=== PATIENT | female | born 1940 | race Caucasian/White ===

== ENCOUNTER 2017-01-01 18:42 | Observation (INO) | payer OTHER ==
--- NOTE | 2017-01-01 19:01 | PDOC ---
Rapid Medical Evaluation Time Seen by Provider: 01/01/17 18:51 Medical Evaluation: Allergies Allergy/AdvReac Type Severity Reaction Status Date / Time No Known Drug Allergies Allergy Verified 10/16/16 10:01 01/01/17 18:54 01/01/17 18:54 01/01/17 19:01 RME Note: I have performed a brief, in-person evaluation of this patient . This patient presents with CC: heart palp x this am; hx afib. no CP, no SOB Pertinent PE findings are: HR= 101; I have ordered: labs, EKG The patient will proceed to ED for further evaluation.
[2017-01-01 19:06] VITALS: BMI 24.4
[2017-01-01 19:22] LABS: EOSINOPHIL 3.1 % (0-4.5); MCH 31.2 pg (25.7-33.7); MEAN CELL VOLUME 91.7 fl (80-96); MEAN PLT VOLUME 8.2 fl (7.5-11.1); NEUTROPHILS 45.1 % (42.8-82.8); PLATELET COUNT 296 K/MM3 (134-434); RDW 13.8 % (11.6-15.6); WHITE BLOOD COUNT 6.7 K/mm3 (4.0-10.0)
[2017-01-01 20:43] LABS: ALBUMIN 4.1 g/dl (3.4-5.0); ALK PHOS 162 U/L (45-117); ANION GAP 7 (8-16); BILIRUBIN,TOTAL 0.3 mg/dL (0.2-1.0); CALCIUM 9.3 mg/dL (8.5-10.1); CO2 31 mmol/L (21-32); CREATININE 0.7 mg/dL (0.55-1.02); GLUCOSE,RANDOM 101 mg/dL (74-106); SGOT/AST 25 U/L (15-37); SGPT/ALT 33 U/L (12-78); TOT PROT 7.7 g/dl (6.4-8.2)
--- NOTE | 2017-01-01 20:52 | PDOC ---
History of Present Illness <Pratima Mars - Last Filed: 01/01/17 21:01> <Neena Bliss - Last Filed: 01/02/17 18:07> - General Chief Complaint: Palpitations Stated Complaint: PALPITATIONS Time Seen by Provider: 01/01/17 18:51 - History of Present Illness Initial Comments: 01/01/17 21:01 The patient is colombian speaking only. Wire Products Inspector #[id number] was used to obtain patient history. The patient is a 76 year old female, with a significant past medical history of hypertension, who presents to the emergency department with palpitations today which she reports started at the middle of her chest radiated down to her epigastric region and up towards her neck. She denies shortness of breath, headache and dizziness. She denies fever, chills , nausea, vomit, diarrhea and constipation. She denies dysuria, frequency, urgency and hematuria. Allergies: NKDA Social history: denies toxic habits PCP - Dr. Girish Em (Pratima Mars) Past History <Pratima Mars - Last Filed: 01/01/17 21:01> - Past Medical History Cardiac Disorders: Yes (A-FIB) - Psycho/Social/Smoking Cessation Hx Anxiety: No Suicidal Ideation: No Smoking History: Never smoked Have you smoked in the past 12 months: No Information on smoking cessation initiated: No Hx Alcohol Use: No Drug/Substance Use Hx: No Substance Use Type: None Hx Substance Use Treatment: No <Neena Bliss - Last Filed: 01/02/17 18:07> - Past Medical History Allergies/Adverse Reactions: Allergies Allergy/AdvReac Type Severity Reaction Status Date / Time No Known Drug Allergies Allergy Verified 01/01/17 18:57 Home Medications: Ambulatory Orders Metoprolol Succinate [Toprol Xl] 25 mg PO DAILY 06/14/15 Rivaroxaban [Xarelto -] 20 mg PO DAILY 06/14/15 Atorvastatin Ca [Lipitor] 10 mg PO HS 10/16/16 Levofloxacin [Levaquin -] 500 mg PO DAILY #5 tablet 01/02/17 Review of Systems - Review of Systems Able to Perform ROS?: Yes <Pratima Mars - Last Filed: 01/01/17 21:01> <Neena Bliss - Last Filed: 01/02/17 18:07> - Review of Systems Comments:: 01/01/17 21:01 CONSTITUTIONAL: Absent: fever, chills, diaphoresis, generalized weakness, malaise, loss of appetite HEENT: Absent: rhinorrhea, nasal congestion, throat pain, throat swelling, difficulty swallowing, mouth swelling, ear pain, eye pain, visual Changes CARDIOVASCULAR: (+) palpitations, Absent: chest pain, syncope, irregular heart rate, lightheadedness, peripheral edema RESPIRATORY: Absent: cough, shortness of breath, dyspnea with exertion, orthopnea, wheezing, stridor, hemoptysis GASTROINTESTINAL: Absent: abdominal pain, abdominal distension, nausea, vomiting, diarrhea, constipation, melena, hematochezia GENITOURINARY: Absent: dysuria, frequency, urgency, hesitancy, hematuria, flank pain, genital pain MUSCULOSKELETAL: Absent: myalgia, arthralgia, joint swelling SKIN: Absent: rash, itching, pallor HEMATOLOGIC/IMMUNOLOGIC: Absent: easy bleeding, easy bruising, lymphadenopathy, frequent infections ENDOCRINE: Absent: unexplained weight gain, unexplained weight loss, heat intolerance, cold intolerance NEUROLOGIC: Absent: headache, focal weakness or paresthesias, dizziness, unsteady gait, seizure, mental status changes, bladder or bowel incontinence PSYCHIATRIC: Absent: anxiety, depression, suicidal or homicidal ideation, hallucinations. ( Pratima Mars) *Physical Exam <Pratima Mars - Last Filed: 01/01/17 21:01> <Neena Bliss - Last Filed: 01/02/17 18:07> - Vital Signs Last Vital Signs Temp Pulse Resp BP Pulse Ox 98.1 F 78 18 130/62 96 01/02/17 05:52 01/02/17 17:18 01/02/17 17:18 01/02/17 17:18 01/02/17 17:18 - Physical Exam Comments: 01/01/17 21:01 GENERAL: Well developed, well nourished. Awake and alert. No acute distress. HEENT: Normocephalic, atraumatic. PERRLA, EOMI. No conjunctival pallor. Sclera are non- icteric. Moist mucous membranes. Oropharynx is clear. NECK: Supple. Full ROM. No JVD. Carotid pulses 2+ and symmetric, without bruits. No thyromegaly. No lymphadenopathy. CARDIOVASCULAR: Regular rate and rhythm. No murmurs, rubs, or gallops. Distal pulses are 2+ and symmetric. PULMONARY: No evidence of respiratory distress. Lungs clear to auscultation bilaterally. No wheezing, rales or rhonchi. ABDOMINAL: Soft. Non-tender. Non-distended. No rebound or guarding. No organomegaly. Normoactive bowel sounds. MUSCULOSKELETAL Normal range of motion at all joints. No bony deformities or tenderness. No CVA tenderness. EXTREMITIES: No cyanosis. No clubbing. No edema. No calf tenderness. SKIN: Warm and dry. Normal capillary refill. No rashes. No jaundice. NEUROLOGICAL: Alert, awake, appropriate. Cranial nerves 2-12 intact. Normoreflexic in the upper and lower extremities. Normal speech. Toes are down-going bilaterally. Gait is normal without ataxia. PSYCHIATRIC: Cooperative. Good eye contact. Appropriate mood and affect. (Pratima Mars) Heart Score/ECG Review - History History: Slightly suspicious - Electrocardiogram EKG: Normal - Age Age: >/= 65 - Risk Factors Risk Factors Heart Score: Yes Hx Hypercholesterolemia, Yes Hx Hypertension Based on the list above the patient has:: 1-2 risk factors - Troponin Troponin: </= normal limit - Score Heart Score - Total: 3 - ECG Intrepretation Rhythm: Regular Rhythm - P and [place] Delta Wave(s) Present: No WPW: No - QRS Widened: RBBB (incomplete Right BBB) <Neena Bliss - Last Filed: 01/02/17 18:07> ED Treatment Course - LABORATORY CBC & Chemistry Diagram: 01/01/17 19:10 01/01/17 19:10 <Pratima Mars - Last Filed: 01/01/17 21:01> - LABORATORY CBC & Chemistry Diagram: 01/01/17 19:10 01/01/17 19:10 <Neena Bliss - Last Filed: 01/02/17 18:07> - ADDITIONAL ORDERS Additional order review: 01/01/17 19:10 RBC 4.26 MCV 91.7 MCHC 34.0 RDW 13.8 MPV 8.2 Neutrophils % 45.1 Lymphocytes % 41.7 H Monocytes % 9.1 Eosinophils % 3.1 Basophils % 1.0 - RADIOLOGY Radiology Studies Ordered: Category Date Time Status CHEST X-RAY PORTABLE* [RAD] Stat Radiology 01/01/17 20:48 Completed Medical Decision Making <Pratima Mars - Last Filed: 01/01/17 21:01> <Neena Bliss - Last Filed: 01/02/17 18:07> - Medical Decision Making 01/02/17 17:54 addendum to yesterday's chart: 76 yo female has palpitaions and came to Er -denies any chest pain as such -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
[2017-01-01 21:56] LABS: TROPONIN I < 0.02 ng/ml (0.00-0.05)
[2017-01-01 22:33] LABS: URINE APPEARANCE CLEAR; URINE BILIRUBIN NEGATIVE (NEGATIVE); URINE COLOR COLORLESS; URINE GLUCOSE (UA) NEGATIVE (NEGATIVE); URINE KETONE NEGATIVE (NEGATIVE); URINE NITRITE NEGATIVE (NEGATIVE); URINE PROTEIN NEGATIVE (NEGATIVE); URINE UROBILINOGEN NEGATIVE E.U./dl (0.2-1.0)
[2017-01-01 22:41] LABS: URINE BLOOD 1+ (NEGATIVE); URINE LEUK ESTERASE 1+ (NEGATIVE)
[2017-01-01 22:43] LABS: URINE MUCUS RARE; URINE RBC <1 /hpf (0-3); URINE WBC 3 /hpf (3-5)
--- NOTE | 2017-01-01 22:51 | HP ---
Admitting History and Physical - Primary Care Physician PCP: Cristiana Arredondo - Admission Chief Complaint: chest pain, palpitations History of Present Illness: The patient is a 76 year old female, with a significant past medical history of hypertension, who presents to the emergency department with palpitations today which she reports started at the middle of her chest radiated down to her epigastric region and up towards her neck. history taken from er note, tanzanian speaking - Past Medical History Cardiovascular: Yes: HTN, Hyperlipdemia - Smoking History Smoking history: Never smoked Have you smoked in the past 12 months: No - Alcohol/Substance Use Hx Alcohol Use: No Home Medications - Allergies Allergies/Adverse Reactions: Allergies Allergy/AdvReac Type Severity Reaction Status Date / Time No Known Drug Allergies Allergy Verified 01/01/17 18:57 - Home Medications Home Medications: Ambulatory Orders Metoprolol Succinate [Toprol Xl] 25 mg PO DAILY 06/14/15 Rivaroxaban [Xarelto -] 20 mg PO DAILY 06/14/15 Atorvastatin Ca [Lipitor] 10 mg PO HS 10/16/16 Family Disease History - Family Disease History Family History: Denies Review of Systems - Review of Systems Cardiovascular: reports: Chest Pain, Palpitations Physical Examination Vital Signs: Vital Signs Temperature 98.0 F 01/01/17 18:58 Pulse Rate 93 H 01/01/17 18:58 Respiratory Rate 18 01/01/17 18:58 Blood Pressure 120/78 01/01/17 18:58 O2 Sat by Pulse Oximetry (%) 100 01/01/17 18:58 Constitutional: Yes: No Distress HENT: Yes: Atraumatic Neck: Yes: Supple Cardiovascular: Yes: Pulse Irregular Respiratory: Yes: CTA Bilaterally Gastrointestinal: Yes: Normal Bowel Sounds Extremities: Yes: WNL Neurological: Yes: Alert, Oriented Problem List - Problems (1) Palpitations Code(s): R00.2 - PALPITATIONS Assessment/Plan Laboratory Tests 01/01/17 01/01/17 01/01/17 19:10 19:10 19:36 WBC 6.7 RBC 4.26 Hgb 13.3 D Hct 39.1 MCV 91.7 MCHC 34.0 RDW 13.8 Plt Count 296 MPV 8.2 Neutrophils % 45.1 Lymphocytes % 41.7 H Monocytes % 9.1 Eosinophils % 3.1 Basophils % 1.0 Sodium 140 Potassium 4.8 D Chloride 102 Carbon Dioxide 31 Anion Gap 7 L BUN 13 D Creatinine 0.7 D Creat Clearance w eGFR > 60 Random Glucose 101 Calcium 9.3 Total Bilirubin 0.3 D AST 25 D ALT 33 Alkaline Phosphatase 162 H Creatine Kinase Troponin I B-Natriuretic Peptide Total Protein 7.7 Albumin 4.1 Lipase 351 Urine Color Colorless Urine Appearance Clear Urine pH 7.0 Ur Specific [place] 1.002 Urine Protein Negative Urine Glucose (UA) Negative Urine Ketones Negative Urine Blood 1+ H Urine Nitrite Negative Urine Bilirubin Negative Urine Urobilinogen Negative Ur Leukocyte Esterase 1+ H Urine RBC <1 Urine WBC 3 Urine Mucus Rare 01/01/17 01/01/17 20:51 20:51 WBC RBC Hgb Hct MCV MCHC RDW Plt Count MPV Neutrophils % Lymphocytes % Monocytes % Eosinophils % Basophils % Sodium Potassium Chloride Carbon Dioxide Anion Gap BUN Creatinine Creat Clearance w eGFR Random Glucose Calcium Total Bilirubin AST ALT Alkaline Phosphatase Creatine Kinase 77 Troponin I < 0.02 B-Natriuretic Peptide 122.23 Total Protein Albumin Lipase Urine Color Urine Appearance Urine pH Ur Specific [place] Urine Protein Urine Glucose (UA) Urine Ketones Urine Blood Urine Nitrite Urine Bilirubin Urine Urobilinogen Ur Leukocyte Esterase Urine RBC Urine WBC Urine Mucus Active Medications Generic Name Dose Route Start Last Admin Trade Name Freq PRN Reason Stop Dose Admin Acetaminophen 650 mg 01/01/17 22:56 Tylenol - PO Q6H PRN FEVER OR PAIN Atorvastatin Calcium 10 mg 01/02/17 22:00 Lipitor - PO HS [facility] Levofloxacin 500 mg 01/01/17 10:00 01/02/17 10:26 Levaquin - PO 500 mg DAILY [facility] Administration Metoprolol Succinate 25 mg 01/02/17 10:00 01/02/17 10:52 Toprol Xl - PO 25 mg DAILY [facility] Administration Rivaroxaban 20 mg 01/02/17 10:00 01/02/17 10:26 Xarelto - PO 20 mg DAILY [facility] Administration A/P 1.chest pain/palpitations tele monitoring fu cardiac profile cardiology consult continue home meds 2.uti will start po levaquin gi /dvt ppx
[2017-01-01] MEDS ORDERED: ACETAMINOPHEN 325 MG TABLET (FP) PO PRN (22:56)
[2017-01-01] MEDS ORDERED: LEVOFLOXACIN 500 MG TABLET (FP) ONE (23:14)
[2017-01-01] MEDS: LEVOFLOXACIN 500 MG TABLET (FP) PO SCH (23:17)
[2017-01-02 02:45] LABS: TROPONIN I < 0.02 ng/ml (0.00-0.05)
[2017-01-02] MEDS ORDERED: RIVAROXABAN 20 MG TABLET PO SCH (10:00)
[2017-01-02] MEDS ORDERED: METOPROLOL SUCCINATE 25 MG TAB.SR.24H (FP) PO SCH (10:00)
--- NOTE | 2017-01-02 10:00 | CON.CARD ---
Consult Consult Specialty:: Cardiology Referred by:: Dr. Arredondo Reason for Consultation:: Cardiac evaluation - History of Present Illness Chief Complaint: Palpitation History of Present Illness: Patient is a 76 year old female of descent with underlying history of hypertension and hypercholesterolemia who presents with palpitations. She denies chest pain or shortness of breath. She denies paroxysmal nocturnal dyspnea or orthopnea. She denies fever or chills. She denies headache or lightheadedness. She states that she feels better now. She denies prior syncopal episodes. - History Source History Provided By: Patient, Friend, Medical Record Limitations to Obtaining History: Language Barrier - Past Medical History Cardio/Vascular: Yes: HTN, Hyperlipdemia Endocrine: No: Diabetes Mellitus - Past Surgical History Additional Surgical History: breast cyst removal - Alcohol/Substance Use Hx Alcohol Use: No - Smoking History Smoking history: Never smoked Have you smoked in the past 12 months: No Home Medications - Allergies Allergies/Adverse Reactions: Allergies Allergy/AdvReac Type Severity Reaction Status Date / Time No Known Drug Allergies Allergy Verified 01/01/17 18:57 - Home Medications Home Medications: Ambulatory Orders Metoprolol Succinate [Toprol Xl] 25 mg PO DAILY 06/14/15 Rivaroxaban [Xarelto -] 20 mg PO DAILY 06/14/15 Atorvastatin Ca [Lipitor] 10 mg PO HS 10/16/16 Family Disease History - Family Disease History Family Disease History: Heart Disease: Brother Review of Systems - Review of Systems Constitutional: denies: Chills, Fever Cardiovascular: reports: Palpitations. denies: Chest Pain, Shortness of Breath Respiratory: denies: Cough, Hemoptysis, Orthopnea, PND, SOB Gastrointestinal: denies: Abdominal Pain, Constipation, Diarrhea, Melena, Nausea , Rectal Bleeding, Vomiting Musculoskeletal: denies: Joint Pain Neurological: denies: Dizziness, Headache, Seizure, Syncope Vital Signs: Vital Signs Temperature 98.1 F 01/02/17 05:52 Pulse Rate 97 H 01/02/17 05:52 Respiratory Rate 19 01/02/17 05:52 Blood Pressure 105/61 01/02/17 05:52 O2 Sat by Pulse Oximetry (%) 99 01/02/17 05:58 Neck: Yes: Supple Respiratory: Yes: CTA Bilaterally Gastrointestinal: Yes: Normal Bowel Sounds, Soft. No: Tenderness Cardiovascular: Yes: Regular Rate and Rhythm JVD: No Carotid Bruit: No PMI: Non-Displaced Heart Sounds: Yes: S1, S2. No: Gallop Edema: No - Other Data Labs, Other Data: Laboratory Results - last 24 hr 01/01/17 01/01/17 01/01/17 19:10 19:10 19:36 WBC 6.7 RBC 4.26 Hgb 13.3 D Hct 39.1 MCV 91.7 MCHC 34.0 RDW 13.8 Plt Count 296 MPV 8.2 Neutrophils % 45.1 Lymphocytes % 41.7 H Monocytes % 9.1 Eosinophils % 3.1 Basophils % 1.0 Sodium 140 Potassium 4.8 D Chloride 102 Carbon Dioxide 31 Anion Gap 7 L BUN 13 D Creatinine 0.7 D Creat Clearance w eGFR > 60 Random Glucose 101 Calcium 9.3 Total Bilirubin 0.3 D AST 25 D ALT 33 Alkaline Phosphatase 162 H Creatine Kinase Troponin I B-Natriuretic Peptide Total Protein 7.7 Albumin 4.1 Lipase 351 Urine Color Colorless Urine Appearance Clear Urine pH 7.0 Ur Specific [place] 1.002 Urine Protein Negative Urine Glucose (UA) Negative Urine Ketones Negative Urine Blood 1+ H Urine Nitrite Negative Urine Bilirubin Negative Urine Urobilinogen Negative Ur Leukocyte Esterase 1+ H Urine RBC <1 Urine WBC 3 Urine Mucus Rare Urine HCG, Qual Negative 01/01/17 01/01/17 01/02/17 20:51 20:51 02:05 WBC RBC Hgb Hct MCV MCHC RDW Plt Count MPV Neutrophils % Lymphocytes % Monocytes % Eosinophils % Basophils % Sodium Potassium Chloride Carbon Dioxide Anion Gap BUN Creatinine Creat Clearance w eGFR Random Glucose Calcium Total Bilirubin AST ALT Alkaline Phosphatase Creatine Kinase 77 56 Troponin I < 0.02 < 0.02 B-Natriuretic Peptide 122.23 Total Protein Albumin Lipase Urine Color Urine Appearance Urine pH Ur Specific [place] Urine Protein Urine Glucose (UA) Urine Ketones Urine Blood Urine Nitrite Urine Bilirubin Urine Urobilinogen Ur Leukocyte Esterase Urine RBC Urine WBC Urine Mucus Urine HCG, Qual Sinus rhythm with atrial premature complex Echo: Pending Imaging - Results Chest X-ray: Report Reviewed (Unremarkable) EKG: Report Reviewed Problem List - Problems (1) Palpitations Code(s): R00.2 - PALPITATIONS (2) HTN (hypertension) Code(s): I10 - ESSENTIAL (PRIMARY) HYPERTENSION Qualifiers: Hypertension type: essential hypertension Qualified Code(s): I10 - Essential (primary) hypertension (3) Hypercholesterolemia Code(s): E78.0 - PURE HYPERCHOLESTEROLEMIA * DO NOT USE * Assessment/Plan 1. Palpitation, etiology to be determined 2. Hypertension 3. Hypercholesterolemia PLAN: 1. Continue Metoprolol 2. Continue statin 3. Transthoracic echocardiography to assess LV and valvular function 4. Telemetry monitoring 5. Patient's medication list includes Xarelto which appears to have been started in the clinic. It is unclear as to reason. It is only indicated for nonvalvular atrial fibrillation or DVT/PE which she nor the daughter is able to give a clear history. Further plans are to follow Evangelista Petersen MD
[2017-01-02] MEDS: LEVOFLOXACIN 500 MG TABLET (FP) PO SCH (10:26)
[2017-01-02] MEDS ORDERED: METOPROLOL SUCCINATE 50 MG TAB.SR.24H (FP) ONE (10:41)
[2017-01-02 17:22] VITALS: BP 130/62; PULSE 78
--- NOTE | 2017-01-02 17:48 | DS ---
Physical Examination Vital Signs: Vital Signs Temperature 98.1 F 01/02/17 05:52 Pulse Rate 78 01/02/17 17:18 Respiratory Rate 18 01/02/17 17:18 Blood Pressure 130/62 01/02/17 17:18 O2 Sat by Pulse Oximetry (%) 96 01/02/17 17:18 Constitutional: Yes: No Distress HENT: Yes: Atraumatic Neck: Yes: Supple Cardiovascular: Yes: Regular Rate and Rhythm Respiratory: Yes: CTA Bilaterally Gastrointestinal: Yes: Normal Bowel Sounds Extremities: Yes: WNL Neurological: Yes: Alert, Oriented Discharge Summary Reason For Visit: PALPITATIONS Current Active Problems HTN (hypertension) (Acute) Hypercholesterolemia (Acute) Palpitations (Acute) - Instructions Diet, Activity, Other Instructions: ask your pmd about xeralto Referrals: Girish mE [Primary Care Provider] - - Home Medications Comprehensive Discharge Medication List: Ambulatory Orders Metoprolol Succinate [Toprol Xl] 25 mg PO DAILY 06/14/15 Rivaroxaban [Xarelto -] 20 mg PO DAILY 06/14/15 Atorvastatin Ca [Lipitor] 10 mg PO HS 10/16/16 Levofloxacin [Levaquin -] 500 mg PO DAILY #5 tablet 01/02/17 DC HOME ON PO LEVAQUIN FOR UTI FU PMD CARDIOLOGY 1 WEEK
--- NOTE | 2017-01-02 18:00 | EKG ---
Test Reason : Blood Pressure : / mmHG Vent. Rate : 100 BPM Atrial Rate : 100 BPM P-R Int : 140 ms QRS Dur : 092 ms QT Int : 322 ms P-R-T Axes : 056 022 045 degrees QTc Int : 415 ms SINUS RHYTHM WITH PREMATURE ATRIAL COMPLEXES POSSIBLE LEFT ATRIAL ENLARGEMENT INCOMPLETE RIGHT BUNDLE BRANCH BLOCK BORDERLINE ECG WHEN COMPARED WITH ECG OF 16-OCT-2016 12:40, PREMATURE ATRIAL COMPLEXES ARE NOW PRESENT INCOMPLETE RIGHT BUNDLE BRANCH BLOCK IS NOW PRESENT Confirmed by JAMAL OWEN MD ([id number]) on 01/02/2017 6:00:37 PM Referred By: Confirmed By:JAMAL OWEN MD
[2017-01-02 18:31] VITALS: TEMP 97.8
[2017-01-02] MEDS ORDERED: ATORVASTATIN CA 10 MG TABLET (FP) PO SCH (22:00)
[2017-01-03 11:32] LABS: THYROID STIMULATING HORMONE 2.43 uIU/ml (0.358-3.74)
== END 2017-01-02 19:05 | disposition home or self-care (01) ==
LOC: JER 18:42 → JERBED 20:56
PROVIDERS: ADMIT Internal Medicine; ATTEND Internal Medicine
DX: R00.2 Palpitations (principal); I10 Essential (primary) hypertension; E78.5 Hyperlipidemia, unspecified; N39.0 Urinary tract infection, site not specified
CPT/HCPCS: 36415; 71010-TC; 80053; 81003; 81015; 82550; 83690; 83880; 84443; 84484; 84703; 85025; 93005; 93010; 93306-TC; 99285-25; G0378

== ENCOUNTER 2017-12-18 04:37 | Emergency (ER) | payer OTHER ==
[2017-12-18 05:20] VITALS: BMI 25.7
--- NOTE | 2017-12-18 05:37 | PDOC ---
History of Present Illness - General Chief Complaint: Pain Stated Complaint: PAIN Time Seen by Provider: 12/18/17 05:37 - History of Present Illness Initial Comments: 12/18/17 06:21 Ms. Sis Gonzalez is a 77 yo female w/ pmh of HTN, HLD, and afib (on Xarelto) who presents complaining of a 2 day history of bilateral pelvic pain with associated left back pain. She reports this has been complicated by increased urinary urgency, frequency, and decreased volume. She recently started taking Augmentin proscribed by her PCP for a problem in her throat but can provide no additional information as to why. The patient denies chest pain, shortness of breath, headache and dizziness. Denies fever, chills, nausea, vomit, diarrhea and constipation. Denies dysuria. Allergies: NKDA Past History - Past Medical History Allergies/Adverse Reactions: Allergies Allergy/AdvReac Type Severity Reaction Status Date / Time No Known Drug Allergies Allergy Verified 12/18/17 05:15 Home Medications: Ambulatory Orders Metoprolol Succinate [Toprol Xl] 25 mg PO DAILY 06/14/15 Rivaroxaban [Xarelto -] 20 mg PO DAILY 06/14/15 Atorvastatin Ca [Lipitor] 10 mg PO HS 10/16/16 Amoxicillin/Potassium Clav [Augmentin 875-125 Tablet] 1 each PO Q12H 12/18/17 Cardiac Disorders: Yes (A-FIB) HTN: Yes Hypercholesterolemia: Yes - Suicide/Smoking/Psychosocial Hx Smoking History: Never smoked Have you smoked in the past 12 months: No Information on smoking cessation initiated: No Hx Alcohol Use: No Drug/Substance Use Hx: No Substance Use Type: None Hx Substance Use Treatment: No Review of Systems - Review of Systems Comments:: 12/18/17 06:26 GENERAL/CONSTITUTIONAL: No fever or chills. No weakness. HEAD, EYES, EARS, NOSE AND THROAT: No change in vision. No ear pain or discharge. No sore throat. CARDIOVASCULAR: No chest pain or shortness of breath RESPIRATORY: No cough, wheezing, or hemoptysis. GASTROINTESTINAL: No nausea, vomiting, diarrhea or constipation. GENITOURINARY: +Increased frequency, urgency, and decreased volume of urine as described. MUSCULOSKELETAL: No joint or muscle swelling or pain. No neck or back pain. SKIN: No rash NEUROLOGIC: No headache, vertigo, loss of consciousness, or change in strength/ sensation. ENDOCRINE: No increased thirst. No abnormal weight change HEMATOLOGIC/LYMPHATIC: No anemia, easy bleeding, or history of blood clots. ALLERGIC/IMMUNOLOGIC: No hives or skin allergy. *Physical Exam - Vital Signs Last Vital Signs Temp Pulse Resp BP Pulse Ox 97.7 F 73 14 116/78 99 12/18/17 05:16 12/18/17 05:16 12/18/17 05:16 12/18/17 05:16 12/18/17 05:16 - Physical Exam Comments: 12/18/17 06:26 GENERAL: Awake, alert, and fully oriented, in no acute distress HEAD: No signs of trauma, normocephalic, atraumatic EYES: PERRLA, EOMI, sclera anicteric, conjunctiva clear ENT: Auricles normal inspection, hearing grossly normal, nares patent, oropharynx clear without exudates. Moist mucosa NECK: Normal ROM, supple, no lymphadenopathy, JVD, or masses LUNGS: No distress, speaks full sentences, clear to auscultation bilaterally HEART: Regular rate and rhythm, normal S1 and S2, no murmurs, rubs or gallops, peripheral pulses normal and equal bilaterally. ABDOMEN: +Mild left CVA tenderness. Soft, nontender, normoactive bowel sounds. No guarding, no rebound. No masses EXTREMITIES: Normal inspection, Normal range of motion, no edema. No clubbing or cyanosis. NEUROLOGICAL: Cranial nerves II through XII grossly intact. Normal speech, normal gait, no focal sensorimotor deficits SKIN: Warm, Dry, normal turgor, no rashes or lesions noted. ED Treatment Course - LABORATORY CBC & Chemistry Diagram: 12/18/17 06:20 12/18/17 06:23 Medical Decision Making - Medical Decision Making 12/18/17 06:42 Ms. Sis Gonzalez is a 77 yo female w/ pmh as described who presents w/ symptoms concerning for uti vs. nephrolithiasis. UA/CBC/CMP/CT ordered for evaluation. 12/18/17 06:41 *DC/Admit/Observation/Transfer Diagnosis at time of Disposition: Abdominal pain Qualifiers: Abdominal location: unspecified location Qualified Code(s): R10.9 - Unspecified abdominal pain - Discharge Dispostion Disposition: HOME Condition at time of disposition: Improved - Referrals Referrals: Madhu,Eric N., MD [Primary Care Provider] - - Patient Instructions Printed Discharge Instructions: DI for Abdominal Muscle Strain Additional Instructions: Follow up with Dr. Leung within the next 2-3 days. Come back to the ER for any new, worsening or concerning symptoms Print Language: TAJIK - Post Discharge Activity
[2017-12-18 06:45] LABS: BASO % 0.8 % (0-2.0); EOS % 1.9 % (0-4.5); HEMATOCRIT 39.5 % (32.4-45.2); HEMOGLOBIN 13.1 GM/dL (10.7-15.3); LYMPH % 30.7 % (8-40); MCH 30.7 pg (25.7-33.7); MCHC 33.1 g/dl (32.0-36.0); MEAN CELL VOLUME 92.7 fl (80-96); MEAN PLT VOLUME 8.4 fl (7.5-11.1); NEUT % 56.6 % (42.8-82.8); PLATELET COUNT 371 K/MM3 (134-434); RBC 4.26 M/mm3 (3.60-5.2); RDW 13.5 % (11.6-15.6); WHITE BLOOD COUNT 10.2 K/mm3 (4.0-10.0)
[2017-12-18 07:12] LABS: ALBUMIN 3.3 g/dl (3.4-5.0); ALK PHOS 97 U/L (45-117); ANION GAP 8 (8-16); BILIRUBIN,TOTAL 0.2 mg/dL (0.2-1.0); BLOOD UREA NITROGEN 13 mg/dL (7-18); CALCIUM 8.8 mg/dL (8.5-10.1); CHLORIDE 105 mmol/L (98-107); CO2 29 mmol/L (21-32); CREATININE 0.7 mg/dL (0.55-1.02); GLUCOSE,RANDOM 101 mg/dL (74-106); SGPT/ALT 19 U/L (12-78); SODIUM 142 mmol/L (136-145); TOT PROT 6.8 g/dl (6.4-8.2)
--- NOTE | 2017-12-18 07:42 | PDOC ---
*Physical Exam - Vital Signs Last Vital Signs Temp Pulse Resp BP Pulse Ox 97.9 F 62 14 147/119 98 12/18/17 06:57 12/18/17 06:57 12/18/17 06:57 12/18/17 06:57 12/18/17 06:57 ED Treatment Course - LABORATORY CBC & Chemistry Diagram: 12/18/17 06:20 12/18/17 06:23 - ADDITIONAL ORDERS Additional order review: 12/18/17 06:20 RBC 4.26 MCV 92.7 MCHC 33.1 RDW 13.5 MPV 8.4 Neutrophils % 56.6 D Lymphocytes % 30.7 D Monocytes % 10.0 Eosinophils % 1.9 Basophils % 0.8 Medical Decision Making - Medical Decision Making 12/18/17 07:[address] Read pending.. 12/18/17 08:[address] negative. Will dc patient with follow up visit to primary doctor *DC/Admit/Observation/Transfer Diagnosis at time of Disposition: Abdominal pain - Discharge Dispostion Disposition: HOME Condition at time of disposition: Improved Admit: No - Referrals Referrals: Eric Leung MD [Primary Care Provider] - - Patient Instructions Printed Discharge Instructions: DI for Abdominal Muscle Strain Additional Instructions: Follow up with Dr. Leung within the next 2-3 days. Come back to the ER for any new, worsening or concerning symptoms Print Language: [place] - Post Discharge Activity
[2017-12-18 07:53] LABS: POTASSIUM 4.9 mmol/L (3.5-5.1)
[2017-12-18 07:54] LABS: SGOT/AST 17 U/L (15-37)
[2017-12-18 07:56] VITALS: TEMP 98.3
[2017-12-18 08:06] LABS: URINE APPEARANCE CLEAR; URINE BILIRUBIN NEGATIVE (NEGATIVE); URINE BLOOD NEGATIVE (NEGATIVE); URINE COLOR LTYELLOW; URINE GLUCOSE (UA) NEGATIVE (NEGATIVE); URINE KETONE NEGATIVE (NEGATIVE); URINE LEUK ESTERASE NEGATIVE (NEGATIVE); URINE NITRITE NEGATIVE (NEGATIVE); URINE PROTEIN NEGATIVE (NEGATIVE); URINE UROBILINOGEN NEGATIVE mg/dL (0.2-1.0)
[2017-12-18 09:02] VITALS: BP 116/70; PULSE 71
== END 2017-12-18 09:02 | disposition home or self-care (01) ==
LOC: JER 04:37
DX: R10.30 Lower abdominal pain, unspecified (principal); I10 Essential (primary) hypertension; E78.00 Pure hypercholesterolemia, unspecified; I48.91 Unspecified atrial fibrillation; Z79.01 Long term (current) use of anticoagulants
CPT/HCPCS: 36415; 74176; 80053; 81003; 85025; 87086; 99285-25

== ENCOUNTER 2017-12-26 19:37 | Inpatient (IN) | payer OTHER ==
--- NOTE | 2017-12-26 20:04 | PDOC ---
Rapid Medical Evaluation Time Seen by Provider: 12/26/17 19:59 Medical Evaluation: Allergies Allergy/AdvReac Type Severity Reaction Status Date / Time No Known Drug Allergies Allergy Verified 12/18/17 05:15 12/26/17 19:59 I have performed a brief in-person evaluation of this patient. The patient presents with a chief complaint of: vomiting since yesterday, 4 episodes of diarrhea, periumbilical abdominal pain, 8/10 pain Pertinent physical exam findings: well appearing I have ordered the following: labs, ekg The patient will proceed to the ED for further evaluation. Discharge Disposition - Diagnosis Abdominal pain - Referrals - Patient Instructions - Post Discharge Activity
[2017-12-26 20:52] LABS: BASO % 0.6 % (0-2.0); EOS % 0.1 % (0-4.5); HEMOGLOBIN 12.1 GM/dL (10.7-15.3); LYMPH % 21.9 % (8-40); MCHC 34.6 g/dl (32.0-36.0); MEAN CELL VOLUME 89.6 fl (80-96); MEAN PLT VOLUME 8.3 fl (7.5-11.1); MONO % 6.7 % (3.8-10.2); NEUT % 70.7 % (42.8-82.8); PLATELET COUNT 255 K/MM3 (134-434); RBC 3.91 M/mm3 (3.60-5.2); RDW 13.2 % (11.6-15.6); WHITE BLOOD COUNT 6.9 K/mm3 (4.0-10.0)
[2017-12-26 21:15] LABS: URINE APPEARANCE CLEAR; URINE BILIRUBIN NEGATIVE (NEGATIVE); URINE BLOOD NEGATIVE (NEGATIVE); URINE COLOR YELLOW; URINE GLUCOSE (UA) NEGATIVE (NEGATIVE); URINE KETONE NEGATIVE (NEGATIVE); URINE NITRITE NEGATIVE (NEGATIVE); URINE PROTEIN NEGATIVE (NEGATIVE); URINE UROBILINOGEN NEGATIVE mg/dL (0.2-1.0)
[2017-12-26 21:18] LABS: URINE LEUK ESTERASE 1+ (NEGATIVE)
[2017-12-26 21:22] LABS: EPI CELLS RARE /HPF (FEW); URINE MUCUS RARE
[2017-12-26 21:32] LABS: ALBUMIN 3.3 g/dl (3.4-5.0); ANION GAP 8 (8-16); BLOOD UREA NITROGEN 11 mg/dL (7-18); CALCIUM 7.8 mg/dL (8.5-10.1); CHLORIDE 88 mmol/L (98-107); CO2 25 mmol/L (21-32); GLUCOSE,RANDOM 111 mg/dL (74-106)
[2017-12-26 21:35] LABS: ALK PHOS 102 U/L (45-117); BILIRUBIN,TOTAL 0.5 mg/dL (0.2-1.0); CREATININE 0.6 mg/dL (0.55-1.02); SGOT/AST 18 U/L (15-37); SGPT/ALT 20 U/L (12-78); TOT PROT 6.7 g/dl (6.4-8.2)
[2017-12-26 21:39] LABS: LIPASE 224 U/L (73-393)
[2017-12-26 21:40] LABS: SODIUM 121 mmol/L (136-145)
[2017-12-26] MEDS ORDERED: ONDANSETRON *ODT* 4 MG TABLET SL ONE (21:55)
[2017-12-26] MEDS ORDERED: ONDANSETRON *ODT* 4 MG TABLET ONE (21:58)
--- NOTE | 2017-12-26 22:15 | PDOC ---
History of Present Illness - General Chief Complaint: Pain Stated Complaint: STOMACH PAIN Time Seen by Provider: 12/26/17 19:59 History Source: Patient - History of Present Illness Initial Comments: 12/26/17 22:20 77 year old c/o periumbilical pain with NVD x 2 days. denies chest pain, respiratory complaints, sick contacts, fever / chills, urinary symptoms. pmhx: HTN, cardiac stents currently on xarelto. Past History - Past Medical History Allergies/Adverse Reactions: Allergies Allergy/AdvReac Type Severity Reaction Status Date / Time No Known Drug Allergies Allergy Verified 12/18/17 05:15 Home Medications: Ambulatory Orders Metoprolol Succinate [Toprol Xl] 25 mg PO DAILY 06/14/15 Rivaroxaban [Xarelto -] 20 mg PO DAILY 06/14/15 Atorvastatin Ca [Lipitor] 10 mg PO HS 10/16/16 Amoxicillin/Potassium Clav [Augmentin 875-125 Tablet] 1 each PO Q12H 12/18/17 Cardiac Disorders: Yes (A-FIB) COPD: No HTN: Yes Hypercholesterolemia: Yes - Suicide/Smoking/Psychosocial Hx Smoking History: Never smoked Have you smoked in the past 12 months: No Information on smoking cessation initiated: No Hx Alcohol Use: No Drug/Substance Use Hx: No Substance Use Type: None Hx Substance Use Treatment: No Review of Systems - Review of Systems Able to Perform ROS?: Yes Is the patient limited Kinyarwanda proficient: No Constitutional: Yes: Symptoms Reported, See HPI, Chills, Diaphoresis, Fever, Loss of Appetite, Malaise, Night Sweats, Weakness, Weight Stable, Unintentional Wgt. Loss, Unexplained wgt Loss, Other ABD/GI: Yes: Diarrhea, Nausea, Vomiting, Abdominal cramping (periumbilical pain) *Physical Exam - Vital Signs Last Vital Signs Temp Pulse Resp BP Pulse Ox 98.3 F 72 19 122/72 98 12/26/17 20:00 12/26/17 20:00 12/26/17 20:00 12/26/17 20:00 12/26/17 20:00 - Physical Exam General Appearance: Yes: Mild Distress Respiratory/Chest: positive: Lungs Clear, Normal Breath Sounds Cardiovascular: positive: Regular Rhythm, Regular Rate ED Treatment Course - LABORATORY CBC & Chemistry Diagram: 12/26/17 20:41 12/26/17 20:41 - ADDITIONAL ORDERS Additional order review: Laboratory Results 12/26/17 12/26/17 12/26/17 20:49 20:45 20:41 Sodium 121 L* Potassium 4.0 Chloride 88 L Carbon Dioxide 25 Anion Gap 8 BUN 11 Creatinine 0.6 Creat Clearance w eGFR > 60 Random Glucose 111 H Calcium 7.8 L Total Bilirubin 0.5 D AST 18 ALT 20 Alkaline Phosphatase 102 Creatine Kinase 123 Troponin I < 0.02 Total Protein 6.7 Albumin 3.3 L Lipase 224 Urine Color Yellow Urine Appearance Clear Urine pH 6.0 Ur Specific [place] 1.018 Urine Protein Negative Urine Glucose (UA) Negative Urine Ketones Negative Urine Blood Negative Urine Nitrite Negative Urine Bilirubin Negative Urine Urobilinogen Negative Ur Leukocyte Esterase 1+ H Urine WBC (Auto) 4 Urine RBC (Auto) 3 Ur Epithelial Cells Rare Urine Mucus Rare 12/26/17 20:41 RBC 3.91 MCV 89.6 MCHC 34.6 RDW 13.2 MPV 8.3 Neutrophils % 70.7 D Lymphocytes % 21.9 D Monocytes % 6.7 Eosinophils % 0.1 D Basophils % 0.6 - Medications Given in the ED: ED Medications Discontinued Medications Generic Name Dose Route Start Last Admin Trade Name Freq PRN Reason Stop Dose Admin Ondansetron HCl 4 mg 12/26/17 21:55 12/26/17 21:59 Zofran Odt - SL 12/26/17 21:56 4 mg ONCE ONE Administration Medical Decision Making - Medical Decision Making 12/26/17 23:49 A: Abdominal pain P: CBC CMP: Hyponatremia NA : 121 UA CTAP: *DC/Admit/Observation/Transfer Diagnosis at time of Disposition: Hyponatremia Abdominal pain Qualifiers: Abdominal location: periumbilical Qualified Code(s): R10.33 - Periumbilical pain - Discharge Dispostion Admit: Yes - Referrals Referrals: Eric Leung MD [Primary Care Provider] - - Patient Instructions - Post Discharge Activity
[2017-12-26] MEDS ORDERED: SODIUM CHLORIDE 1,000 ML IV STA (22:23)
--- NOTE | 2017-12-27 00:44 | PDOC ---
*Physical Exam - Vital Signs Last Vital Signs Temp Pulse Resp BP Pulse Ox 98.3 F 72 19 122/72 98 12/26/17 20:00 12/26/17 20:00 12/26/17 20:00 12/26/17 20:00 12/26/17 20:00 ED Treatment Course - LABORATORY CBC & Chemistry Diagram: 12/26/17 20:41 12/26/17 20:41 - ADDITIONAL ORDERS Additional order review: Laboratory Results 12/26/17 12/26/17 12/26/17 20:49 20:45 20:41 Sodium 121 L* Potassium 4.0 Chloride 88 L Carbon Dioxide 25 Anion Gap 8 BUN 11 Creatinine 0.6 Creat Clearance w eGFR > 60 Random Glucose 111 H Calcium 7.8 L Total Bilirubin 0.5 D AST 18 ALT 20 Alkaline Phosphatase 102 Creatine Kinase 123 Troponin I < 0.02 Total Protein 6.7 Albumin 3.3 L Lipase 224 Urine Color Yellow Urine Appearance Clear Urine pH 6.0 Ur Specific [place] 1.018 Urine Protein Negative Urine Glucose (UA) Negative Urine Ketones Negative Urine Blood Negative Urine Nitrite Negative Urine Bilirubin Negative Urine Urobilinogen Negative Ur Leukocyte Esterase 1+ H Urine WBC (Auto) 4 Urine RBC (Auto) 3 Ur Epithelial Cells Rare Urine Mucus Rare 12/26/17 20:41 RBC 3.91 MCV 89.6 MCHC 34.6 RDW 13.2 MPV 8.3 Neutrophils % 70.7 D Lymphocytes % 21.9 D Monocytes % 6.7 Eosinophils % 0.1 D Basophils % 0.6 - Medications Given in the ED: ED Medications Discontinued Medications Generic Name Dose Route Start Last Admin Trade Name Freq PRN Reason Stop Dose Admin Sodium Chloride 1,000 mls @ 1,000 mls/hr 12/26/17 22:23 12/26/17 23:00 Normal Saline - IV 12/26/17 23:22 1,000 mls/hr ASDIR STA Administration Ondansetron HCl 4 mg 12/26/17 21:55 12/26/17 21:59 Zofran Odt - SL 12/26/17 21:56 4 mg ONCE ONE Administration Medical Decision Making - Medical Decision Making 12/27/17 00:43 agree with care from SHASHA Bliss *DC/Admit/Observation/Transfer Diagnosis at time of Disposition: Hyponatremia Abdominal pain Qualifiers: Abdominal location: periumbilical Qualified Code(s): R10.33 - Periumbilical pain - Referrals Referrals: Eric Leung MD [Primary Care Provider] - - Patient Instructions - Post Discharge Activity
[2017-12-27] MEDS ORDERED: SODIUM CHLORIDE 1,000 ML IV SCH ×4 (01:45→17:30)
[2017-12-27 03:05] LABS: ANION GAP 12 (8-16); BLOOD UREA NITROGEN 9 mg/dL (7-18); CALCIUM 8.5 mg/dL (8.5-10.1); CHLORIDE 88 mmol/L (98-107); CO2 24 mmol/L (21-32); CREATININE 0.6 mg/dL (0.55-1.02); GLUCOSE,RANDOM 131 mg/dL (74-106); POTASSIUM 3.5 mmol/L (3.5-5.1)
[2017-12-27 03:07] LABS: SODIUM 124 mmol/L (136-145)
--- NOTE | 2017-12-27 04:11 | HP ---
CHIEF COMPLAINT: nausea, vomiting PCP: HISTORY OF PRESENT ILLNESS: The patient is a 77 yo f w/ PMH HTN, CAD s/p stenting, afib who comes into the ED c/o a 2 day history of Nausea, vomiting, diarrhea and cough. The patient's symptoms are also associated with a cough productive of yellowish sputum as well as mild dysuria. Causative factors are unclear, though patient endorsed starting a new SSRI on 12/24. Patient denies Chest pain, SOB, sick contacts, fevers, chills, Recent travel. ER course was notable for: (1) Sodium to 121 (2) CT abdomen pelvis unremarkable (3) Recent Travel: None PAST MEDICAL HISTORY: Hypertension, CAD status post stent, a fib, hyperlipidemia PAST SURGICAL HISTORY: None Social History: Smoking: denies Alcohol: denies Drugs: denies Family History: non-contributory Allergies No Known Drug Allergies Allergy (Verified 12/18/17 05:15) HOME MEDICATIONS: Home Medications Medication Instructions Recorded Metoprolol Succinate [Toprol Xl] 25 mg PO DAILY 06/14/15 Rivaroxaban [Xarelto -] 20 mg PO DAILY 06/14/15 Atorvastatin Ca [Lipitor] 10 mg PO HS 10/16/16 REVIEW OF SYSTEMS CONSTITUTIONAL: Absent: fever, chills, diaphoresis, generalized weakness, malaise, loss of appetite, weight change HEENT: Absent: rhinorrhea, nasal congestion, throat pain, throat swelling, difficulty swallowing, mouth swelling, ear pain, eye pain, visual changes CARDIOVASCULAR: Absent: chest pain, syncope, palpitations, irregular heart rate, lightheadedness , peripheral edema RESPIRATORY: Absent: shortness of breath, dyspnea with exertion, orthopnea, wheezing, stridor , hemoptysis GASTROINTESTINAL: Absent: abdominal distension, constipation, melena, hematochezia GENITOURINARY: Absent: dysuria, frequency, urgency, hesitancy, hematuria, flank pain, genital pain MUSCULOSKELETAL: Absent: myalgia, arthralgia, joint swelling, back pain, neck pain SKIN: Absent: rash, itching, pallor HEMATOLOGIC/IMMUNOLOGIC: Absent: easy bleeding, easy bruising, lymphadenopathy, frequent infections ENDOCRINE: Absent: unexplained weight gain, unexplained weight loss, heat intolerance, cold intolerance NEUROLOGIC: Absent: headache, focal weakness or paresthesias, dizziness, unsteady gait, seizure, mental status changes, bladder or bowel incontinence PSYCHIATRIC: Absent: anxiety, depression, suicidal or homicidal ideation, hallucinations. PHYSICAL EXAMINATION Vital Signs - 24 hr 12/26/17 12/27/17 20:00 03:37 Temperature 98.3 F Pulse Rate 72 Respiratory 19 Rate Blood Pressure 122/72 O2 Sat by Pulse 98 97 Oximetry (%) GENERAL: Awake, alert, and fully oriented, in no acute distress. HEAD: Normal with no signs of trauma. EYES: Pupils equal, round and reactive to light, extraocular movements intact, sclera anicteric, conjunctiva clear. No lid lag. EARS, NOSE, THROAT: Ears normal, nares patent, oropharynx clear without exudates. dry mucous membranes. NECK: Normal range of motion, supple without lymphadenopathy, JVD, or masses. LUNGS: Breath sounds equal, clear to auscultation bilaterally. No wheezes, and no crackles. No accessory muscle use. HEART: Regular rate and rhythm, normal S1 and S2 without murmur, rub or gallop. ABDOMEN: Soft, mild tenderness to palpation in lower quadrants, not distended, normoactive bowel sounds, no guarding, no rebound, no masses. No hepatomegaly or splenomegaly. LOWER EXTREMITIES: 2+ pulses, warm, well-perfused. No calf tenderness. No peripheral edema. NEUROLOGICAL: Cranial nerves II-X intact. Normal speech. SKIN: Warm, excessively dry, normal turgor, no rashes or lesions noted, normal capillary refill. Laboratory Results - last 24 hr 12/26/17 12/26/17 12/26/17 20:41 20:41 20:45 WBC 6.9 D RBC 3.91 Hgb 12.1 Hct 35.0 MCV 89.6 MCH 31.0 MCHC 34.6 RDW 13.2 Plt Count 255 D MPV 8.3 Neutrophils % 70.7 D Lymphocytes % 21.9 D Monocytes % 6.7 Eosinophils % 0.1 D Basophils % 0.6 Sodium 121 L* Potassium 4.0 Chloride 88 L Carbon Dioxide 25 Anion Gap 8 BUN 11 Creatinine 0.6 Creat Clearance w eGFR > 60 Random Glucose 111 H Calcium 7.8 L Total Bilirubin 0.5 D AST 18 ALT 20 Alkaline Phosphatase 102 Creatine Kinase 123 Troponin I < 0.02 Total Protein 6.7 Albumin 3.3 L Lipase 224 Urine Color Urine Appearance Urine pH Ur Specific [place] Urine Protein Urine Glucose (UA) Urine Ketones Urine Blood Urine Nitrite Urine Bilirubin Urine Urobilinogen Ur Leukocyte Esterase Urine WBC (Auto) Urine RBC (Auto) Ur Epithelial Cells Urine Mucus 12/26/17 12/27/17 20:49 02:31 WBC RBC Hgb Hct MCV MCH MCHC RDW Plt Count MPV Neutrophils % Lymphocytes % Monocytes % Eosinophils % Basophils % Sodium 124 L* Potassium 3.5 Chloride 88 L Carbon Dioxide 24 Anion Gap 12 BUN 9 Creatinine 0.6 Creat Clearance w eGFR Random Glucose 131 H Calcium 8.5 Total Bilirubin AST ALT Alkaline Phosphatase Creatine Kinase Troponin I Total Protein Albumin Lipase Urine Color Yellow Urine Appearance Clear Urine pH 6.0 Ur Specific [place] 1.018 Urine Protein Negative Urine Glucose (UA) Negative Urine Ketones Negative Urine Blood Negative Urine Nitrite Negative Urine Bilirubin Negative Urine Urobilinogen Negative Ur Leukocyte Esterase 1+ H Urine WBC (Auto) 4 Urine RBC (Auto) 3 Ur Epithelial Cells Rare Urine Mucus Rare ASSESSMENT/PLAN: The patient is a 77-year-old female with a PMH of hypertension CAD and a fib who is being admitted for symptomatic hyponatremia. #Hyponatremia 2/2 GI losses Repeat BMP shows sodium of 124, patient currently asymptomatic repeat BMP Q4 hours normal saline at 60 avoid raising sodium more than 10meq in 24 hrs urine electrolytes, UA, urine osmolarity Zofran PRN nausea Serum osmolarity CXR TSH, AM labs Replete potassium w/ 40 MEQ PO #Dysuria rocephin 1g daily x 3 days UA, Urine culture #FEN -NS@ 60 -monitor lytes closely -regular diet #prophylaxis -patient on xarelto #dispo -admit to med-surg Visit type - Emergency Visit Emergency Visit: Yes Care time: The patient presented to the Emergency Department on the above date and was hospitalized for further evaluation of their emergent condition. - New Patient This patient is new to me today: Yes Date on this admission: 12/27/17 - Critical Care Critical Care patient: No Hospitalist Screening - Colonoscopy Questionnaire Colonoscopy Questionnaire: Colonoscopy Questionnaire - Patient: 50 - 75 years old and never had a screening colonoscopy: Unknown History of colon or rectal polyps, or CA: Unknown History of IBD, Crohn's disease or UC: Unknown History of abdominal radiation therapy as a child: Unknown - Relative: 1 with colon or rectal CA, or polyps at age 60 or younger: Unknown Colon or rectal CA diagnosed at age 45 or younger: Unknown Multiple relatives with colon or rectal CA: Unknown - Outcome: Screening Result: Negative Screen
--- NOTE | 2017-12-27 05:47 | PN ---
Teaching Attending Note Name of Resident: Eber Walker ATTENDING PHYSICIAN STATEMENT I saw and evaluated the patient. Chart, data, imaging reviewed. I reviewed the resident's note and discussed the case with the resident. I agree with the resident's findings and plan as documented. SUBJECTIVE: 77yo [place] woman c/o nausea, vomiting and diarrhea for 2 days, associated with abdominal pain and decreased appetite. She reported 7 episodes of vomiting and 4 episodes of diarrhea in total. Symptoms started abruptly without clear causative factor except for starting new SSRI. No recent travels or exotic foods. Na found to be 121 in ER. 12/18 Na was wnl. Pt received 1L NS in ER. Repeat Na was 124. Patient also c/o some mild dysuria. OBJECTIVE: Last Vital Signs Temp Pulse Resp BP Pulse Ox 98.3 F 72 19 122/72 97 12/26/17 20:00 12/26/17 20:00 12/26/17 20:00 12/26/17 20:00 12/27/17 03:37 General- nontoxic appearing, no acute distress, no SOB HEENT-at, nc, no sinus tendernes, dry mucous membranes Neck- supple, collapsed JVD CV- s1+S2+ irregularly irregular rhythm Chest - cta b/l, + scoliosis abdomen- soft, nt, BS+ Skin- dry, good capillary refill, no rashes noted Abnormal Lab Results 12/26/17 12/26/17 12/27/17 20:41 20:49 02:31 Sodium 121 L* 124 L* Chloride 88 L 88 L Random Glucose 111 H 131 H Calcium 7.8 L Albumin 3.3 L Ur Leukocyte Esterase 1+ H Abdomen/pelvis CT - no acute intraabdominal pathology ASSESSMENT AND PLAN: #Hypovolemic hyponatremia- Na -121 on presentation, acute, as 12/18 Na was normal. Likely from gastroenteritis and GI loses from vomiting and diarrhea. Possible adverse drug reaction to SSRI? -admit to med/surg -NS at 60 cc an hour -bmp q4hrs -aim for no more than 10 mEq correction of Na in 24 hrs -neuro checks q4hrs -I/o -daily weights -zofran PRN if nausea/vomiting -NPO for now -fall precautions -bed rest -check Mg,Phos, K - replace electrolytes PRN -serum osm, urine osm, urine lytes #UTI -send urine culture -ceftriaxone 1g IV q24hrs #DVT- heparin sc
[2017-12-27] MEDS ORDERED: ONDANSETRON 4 MG/2 ML VIAL IVPUSH PRN (06:44)
[2017-12-27] MEDS ORDERED: POTASSIUM CHLORIDE TABS 20 MEQ TABLET.ER (FP) PO ONE (06:46)
[2017-12-27 07:20] LABS: BASO % 0.7 % (0-2.0); EOS % 0.3 % (0-4.5); HEMATOCRIT 34.2 % (32.4-45.2); LYMPH % 24.6 % (8-40); MEAN CELL VOLUME 88.7 fl (80-96); MONO % 7.5 % (3.8-10.2); NEUT % 66.9 % (42.8-82.8); PLATELET COUNT 240 K/MM3 (134-434); RBC 3.86 M/mm3 (3.60-5.2); RDW 13.4 % (11.6-15.6); WHITE BLOOD COUNT 8.5 K/mm3 (4.0-10.0)
[2017-12-27 08:09] LABS: ALBUMIN 3.2 g/dl (3.4-5.0); ANION GAP 11 (8-16); BILIRUBIN,TOTAL 0.5 mg/dL (0.2-1.0); BLOOD UREA NITROGEN 8 mg/dL (7-18); CALCIUM 8.3 mg/dL (8.5-10.1); CHLORIDE 89 mmol/L (98-107); CO2 24 mmol/L (21-32); CREATININE 0.6 mg/dL (0.55-1.02); GLUCOSE,RANDOM 104 mg/dL (74-106); MAGNESIUM 2.4 mg/dL (1.8-2.4); PHOSPHOROUS 3.1 mg/dL (2.5-4.9); SGOT/AST 20 U/L (15-37); SGPT/ALT 19 U/L (12-78); TOT PROT 6.8 g/dl (6.4-8.2)
[2017-12-27 08:10] LABS: ALK PHOS 100 U/L (45-117)
[2017-12-27 08:33] LABS: SODIUM 124 mmol/L (136-145)
[2017-12-27 10:45] LABS: URINE APPEARANCE CLEAR; URINE BILIRUBIN NEGATIVE (NEGATIVE); URINE BLOOD NEGATIVE (NEGATIVE); URINE COLOR STRAW; URINE GLUCOSE (UA) NEGATIVE (NEGATIVE); URINE KETONE NEGATIVE (NEGATIVE); URINE NITRITE NEGATIVE (NEGATIVE); URINE PROTEIN NEGATIVE (NEGATIVE); URINE UROBILINOGEN NEGATIVE mg/dL (0.2-1.0)
[2017-12-27 10:52] LABS: URINE LEUK ESTERASE 1+ (NEGATIVE)
[2017-12-27 10:53] LABS: EPI CELLS RARE /HPF (FEW)
--- NOTE | 2017-12-27 11:40 | EKG ---
Test Reason : Blood Pressure : / mmHG Vent. Rate : 081 BPM Atrial Rate : 081 BPM P-R Int : 148 ms QRS Dur : 092 ms QT Int : 398 ms P-R-T Axes : 063 055 057 degrees QTc Int : 462 ms SINUS RHYTHM WITH PREMATURE ATRIAL COMPLEXES POSSIBLE LEFT ATRIAL ENLARGEMENT INCOMPLETE RIGHT BUNDLE BRANCH BLOCK BORDERLINE ECG WHEN COMPARED WITH ECG OF 01-JAN-2017 18:48, NO SIGNIFICANT CHANGE WAS FOUND Confirmed by KAR LYNN, MANOJ ([id number]) on 12/27/2017 11:39:59 AM Referred By: Confirmed By:MANOJ LAKHANI MD
[2017-12-27] MEDS ORDERED: CEFTRIAXONE 1 GM/50 ML BAG ONE (11:43)
[2017-12-27] MEDS: CEFTRIAXONE 1 G/50 ML PREMIX 50 ML IVPB SCH (11:54)
[2017-12-27] MEDS: metoPROLOL SUCCINATE 25 MG TAB.SR.24H (FP) PO SCH (11:54)
[2017-12-27 15:09] VITALS: BMI 25.0
[2017-12-27] MEDS ORDERED: PNEUMOC 13-VAL CONJ-DIP CRM/PF 0.5 ML DISP.SYRIN IM ONE (15:15)
[2017-12-27] MEDS: RIVAROXABAN 20 MG TABLET PO SCH (15:18)
--- NOTE | 2017-12-27 15:31 | CONSULT ---
Consult Consult Specialty:: Nephrology Reason for Consultation:: hyponatremia - History of Present Illness Chief Complaint: nausea and vomiting History of Present Illness: Pt is a 77 year old female with pmhx of HTN, CAD and a-fib who presents to the ER with nausea, vomiting and diarrhea. She says that her symptoms are better today. She denies abdominal pain. She complains of cough. I was called to evaluate her for hyponatremia. Her sodium improved with saline. She says that she has only been drinking water for the last few days. She denies headache. She denies loss of balance. She is awake and alert. - History Source History Provided By: Patient, Family Member, Medical Record - Past Medical History Cardio/Vascular: Yes: AFIB, HTN, Hyperlipdemia - Alcohol/Substance Use Hx Alcohol Use: No - Smoking History Smoking history: Never smoked Have you smoked in the past 12 months: No Home Medications - Allergies Allergies/Adverse Reactions: Allergies Allergy/AdvReac Type Severity Reaction Status Date / Time No Known Drug Allergies Allergy Verified 12/18/17 05:15 - Home Medications Home Medications: Ambulatory Orders Metoprolol Succinate [Toprol Xl] 25 mg PO DAILY 06/14/15 Rivaroxaban [Xarelto -] 20 mg PO DAILY 06/14/15 Atorvastatin Ca [Lipitor] 10 mg PO HS 10/16/16 Family Disease History - Family Disease History Family Disease History: Heart Disease: Brother Review of Systems - Review of Systems Constitutional: reports: No Symptoms Eyes: reports: No Symptoms HENT: reports: No Symptoms Neck: reports: No Symptoms Cardiovascular: reports: No Symptoms Respiratory: reports: No Symptoms Gastrointestinal: reports: No Symptoms Genitourinary: reports: No Symptoms Integumentary: reports: No Symptoms Neurological: reports: No Symptoms Endocrine: reports: No Symptoms Hematology/Lymphatic: reports: No Symptoms Psychiatric: reports: No Symptoms Physical Exam Vital Signs: Vital Signs Temperature 98 F 12/27/17 12:05 Pulse Rate 89 12/27/17 12:05 Respiratory Rate 16 12/27/17 12:05 Blood Pressure 134/69 12/27/17 12:05 O2 Sat by Pulse Oximetry (%) 100 12/27/17 12:05 Constitutional: Yes: Calm Eyes: Yes: Conjunctiva Clear Cardiovascular: Yes: S1, S2 Respiratory: Yes: CTA Bilaterally Gastrointestinal: Yes: Soft Renal/: Yes: WNL Musculoskeletal: Yes: WNL Edema: No Neurological: Yes: Oriented Psychiatric: Yes: Oriented Labs: CBC, BMP 12/27/17 06:45 12/27/17 06:45 Laboratory Tests 12/18/17 12/26/17 12/27/17 06:23 20:41 02:31 Hgb Sodium 142 121 L* 124 L* Potassium Chloride Carbon Dioxide Creatinine 0.6 Serum Osmolality TSH Ur Specific [place] Urine Protein Urine Glucose (UA) Urine Blood Urine Osmolality Ur Random Sodium Ur Random Potassium Ur Random Chloride 12/27/17 12/27/17 12/27/17 06:45 06:45 06:45 Hgb 12.0 Sodium 124 L* Potassium 4.0 Chloride 89 L Carbon Dioxide 24 Creatinine 0.6 Serum Osmolality 254 L TSH 2.75 Ur Specific [place] Urine Protein Urine Glucose (UA) Urine Blood Urine Osmolality Ur Random Sodium Ur Random Potassium Ur Random Chloride 12/27/17 12/27/17 12/27/17 09:37 10:30 10:30 Hgb Sodium Potassium Chloride Carbon Dioxide Creatinine Serum Osmolality TSH Ur Specific [place] 1.006 Urine Protein Negative Urine Glucose (UA) Negative Urine Blood Negative Urine Osmolality 152 L Ur Random Sodium 25 Ur Random Potassium 13.0 Ur Random Chloride 30 Imaging - Results Cat Scan: Report Reviewed Problem List - Problems (1) Vomiting Code(s): R11.10 - VOMITING, UNSPECIFIED (2) Diarrhea Code(s): R19.7 - DIARRHEA, UNSPECIFIED (3) Hyponatremia Code(s): E87.1 - HYPO-OSMOLALITY AND HYPONATREMIA (4) HTN (hypertension) Code(s): I10 - ESSENTIAL (PRIMARY) HYPERTENSION Qualifiers: Hypertension type: essential hypertension Qualified Code(s): I10 - Essential (primary) hypertension (5) Hypercholesterolemia Code(s): E78.0 - PURE HYPERCHOLESTEROLEMIA * DO NOT USE * Assessment/Plan Current Medications Generic Name Dose Route Start Last Admin Trade Name Freq PRN Reason Stop Dose Admin Atorvastatin Calcium 10 mg 12/27/17 22:00 Lipitor - PO HS YOVANNY CEFTRIAXONE 1 G/50 ML PREMIX 50 mls @ 100 mls/hr 12/27/17 10:00 12/27/17 11: 54 Ceftriaxone 1 Gm-D5w Bag IVPB 12/29/17 10:29 100 mls/hr DAILY YOVANNY Administration Sodium Chloride 1,000 mls @ 60 mls/hr 12/27/17 06:44 12/27/17 07:10 Normal Saline - IV 12/28/17 03:43 60 mls/hr ASDIR YOVANNY Administration Metoprolol Succinate 25 mg 12/27/17 10:00 12/27/17 11:54 Toprol Xl - PO 25 mg DAILY YOVANNY Administration Ondansetron HCl 4 mg 12/27/17 06:44 Zofran Injection IVPUSH Q6H PRN NAUSEA Rivaroxaban 20 mg 12/27/17 10:00 12/27/17 15:18 Xarelto - PO 20 mg DAILY YOVANNY Administration Impression 1. hyponatremia 2. gastroenteritis 3. a-fib 4. chol Plan - repeat bmp stat to evaluate sodium - pt is tolerating diet - cont free water restriction - urine studies not consistent with siadh - etiology of hyponatermia is secondary to dehydration and fluids loss from GI - will follow - called and spoke to nurse about plan Dr Luu
[2017-12-27 17:09] LABS: ANION GAP 8 (8-16); BLOOD UREA NITROGEN 7 mg/dL (7-18); CALCIUM 8.2 mg/dL (8.5-10.1); CHLORIDE 94 mmol/L (98-107); CO2 26 mmol/L (21-32); CREATININE 0.6 mg/dL (0.55-1.02); GLUCOSE,RANDOM 100 mg/dL (74-106); POTASSIUM 4.7 mmol/L (3.5-5.1); SODIUM 128 mmol/L (136-145)
--- NOTE | 2017-12-27 17:21 | PN ---
Progress Note (short form) - Note Progress Note: Laboratory Tests 12/27/17 15:40 Sodium 128 L Potassium 4.7 Chloride 94 L Sodium is improving. Problem List - Problems (1) Vomiting Code(s): R11.10 - VOMITING, UNSPECIFIED (2) Diarrhea Code(s): R19.7 - DIARRHEA, UNSPECIFIED (3) Hyponatremia Code(s): E87.1 - HYPO-OSMOLALITY AND HYPONATREMIA (4) HTN (hypertension) Code(s): I10 - ESSENTIAL (PRIMARY) HYPERTENSION Qualifiers: Hypertension type: essential hypertension Qualified Code(s): I10 - Essential (primary) hypertension (5) Hypercholesterolemia Code(s): E78.0 - PURE HYPERCHOLESTEROLEMIA * DO NOT USE *
[2017-12-27] MEDS: ATORVASTATIN CA 10 MG TABLET (FP) PO SCH (23:31)
[2017-12-28 09:05] LABS: ALBUMIN 3.5 g/dl (3.4-5.0); ANION GAP 7 (8-16); BLOOD UREA NITROGEN 7 mg/dL (7-18); CALCIUM 8.1 mg/dL (8.5-10.1); CHLORIDE 98 mmol/L (98-107); CO2 27 mmol/L (21-32); GLUCOSE,RANDOM 98 mg/dL (74-106); POTASSIUM 4.7 mmol/L (3.5-5.1); SODIUM 132 mmol/L (136-145)
[2017-12-28 09:08] LABS: ALK PHOS 99 U/L (45-117); BILIRUBIN,TOTAL 0.7 mg/dL (0.2-1.0); CREATININE 0.6 mg/dL (0.55-1.02); SGOT/AST 18 U/L (15-37); SGPT/ALT 19 U/L (12-78); TOT PROT 6.8 g/dl (6.4-8.2)
[2017-12-28] MEDS: RIVAROXABAN 20 MG TABLET PO SCH (10:01)
[2017-12-28] MEDS: CEFTRIAXONE 1 G/50 ML PREMIX 50 ML IVPB SCH (10:01)
[2017-12-28] MEDS: metoPROLOL SUCCINATE 25 MG TAB.SR.24H (FP) PO SCH (10:01)
--- NOTE | 2017-12-28 16:56 | PN ---
Progress Note, Physician History of Present Illness: Pt seen and examined at bedside. She is awake and alert. She says she feels much better today. - Current Medication List Current Medications: Active Medications Atorvastatin Calcium (Lipitor -) 10 mg PO HS [facility] Last Admin: 12/27/17 23:31 Dose: 10 mg CEFTRIAXONE 1 G/50 ML PREMIX (Ceftriaxone 1 Gm-D5w Bag) 50 mls @ 100 mls/hr IVPB DAILY [facility] Stop: 12/29/17 10:29 Last Admin: 12/28/17 10:01 Dose: 100 mls/hr Metoprolol Succinate (Toprol Xl -) 25 mg PO DAILY [facility] Last Admin: 12/28/17 10:01 Dose: 25 mg Ondansetron HCl (Zofran Injection) 4 mg IVPUSH Q6H PRN PRN Reason: NAUSEA Rivaroxaban (Xarelto -) 20 mg PO DAILY [facility] Last Admin: 12/28/17 10:01 Dose: 20 mg - Objective Vital Signs: Vital Signs Temperature 97.8 F 12/28/17 14:33 Pulse Rate 113 H 12/28/17 14:33 Respiratory Rate 20 12/28/17 14:33 Blood Pressure 125/78 12/28/17 14:33 O2 Sat by Pulse Oximetry (%) 100 12/27/17 21:00 Constitutional: Yes: Calm Eyes: Yes: Conjunctiva Clear HENT: Yes: Atraumatic Neck: Yes: Supple Cardiovascular: Yes: S1, S2 Gastrointestinal: Yes: Normal Bowel Sounds, Soft Genitourinary: Yes: WNL Musculoskeletal: Yes: WNL Edema: No Neurological: Yes: Oriented Psychiatric: Yes: Oriented Labs: CBC, BMP 12/27/17 06:45 12/28/17 07:20 Problem List - Problems (1) Vomiting Code(s): R11.10 - VOMITING, UNSPECIFIED (2) Diarrhea Code(s): R19.7 - DIARRHEA, UNSPECIFIED (3) Hyponatremia Code(s): E87.1 - HYPO-OSMOLALITY AND HYPONATREMIA (4) HTN (hypertension) Code(s): I10 - ESSENTIAL (PRIMARY) HYPERTENSION Qualifiers: Hypertension type: essential hypertension Qualified Code(s): I10 - Essential (primary) hypertension (5) Hypercholesterolemia Code(s): E78.0 - PURE HYPERCHOLESTEROLEMIA * DO NOT USE * Assessment/Plan Current Medications Generic Name Dose Route Start Last Admin Trade Name Freq PRN Reason Stop Dose Admin Atorvastatin Calcium 10 mg 12/27/17 22:00 12/27/17 23:31 Lipitor - PO 10 mg HS YOVANNY Administration CEFTRIAXONE 1 G/50 ML PREMIX 50 mls @ 100 mls/hr 12/27/17 10:00 12/28/17 10: 01 Ceftriaxone 1 Gm-D5w Bag IVPB 12/29/17 10:29 100 mls/hr DAILY YOVANNY Administration Metoprolol Succinate 25 mg 12/27/17 10:00 12/28/17 10:01 Toprol Xl - PO 25 mg DAILY YOVANNY Administration Ondansetron HCl 4 mg 12/27/17 06:44 Zofran Injection IVPUSH Q6H PRN NAUSEA Rivaroxaban 20 mg 12/27/17 10:00 12/28/17 10:01 Xarelto - PO 20 mg DAILY YOVANNY Administration Impression 1. hyponatremia 2. gastroenteritis 3. a-fib 4. chol Plan - sodium is improving - repeat labs in an - pt is tolerating diet - GI symptoms are improved - hyponatremia likely from dehydratio - will follow Dr Luu
[2017-12-28] MEDS: ATORVASTATIN CA 10 MG TABLET (FP) PO SCH (21:32)
--- NOTE | 2017-12-29 00:02 | PN ---
Progress Note, Physician - Current Medication List Current Medications: Active Medications Atorvastatin Calcium (Lipitor -) 10 mg PO HS [facility] Last Admin: 12/28/17 21:32 Dose: 10 mg CEFTRIAXONE 1 G/50 ML PREMIX (Ceftriaxone 1 Gm-D5w Bag) 50 mls @ 100 mls/hr IVPB DAILY [facility] Stop: 12/29/17 10:29 Last Admin: 12/28/17 10:01 Dose: 100 mls/hr Metoprolol Succinate (Toprol Xl -) 25 mg PO DAILY [facility] Last Admin: 12/28/17 10:01 Dose: 25 mg Ondansetron HCl (Zofran Injection) 4 mg IVPUSH Q6H PRN PRN Reason: NAUSEA Rivaroxaban (Xarelto -) 20 mg PO DAILY [facility] Last Admin: 12/28/17 10:01 Dose: 20 mg - Objective Vital Signs: Vital Signs Temperature 98.1 F 12/28/17 18:00 Pulse Rate 90 12/28/17 18:00 Respiratory Rate 20 12/28/17 18:00 Blood Pressure 141/73 12/28/17 18:00 O2 Sat by Pulse Oximetry (%) 96 12/28/17 09:00 Labs: CBC, BMP 12/27/17 06:45 12/28/17 07:20
[2017-12-29] MEDS: metoPROLOL SUCCINATE 25 MG TAB.SR.24H (FP) PO SCH (10:54)
[2017-12-29] MEDS: CEFTRIAXONE 1 G/50 ML PREMIX 50 ML IVPB SCH (10:54)
[2017-12-29] MEDS: RIVAROXABAN 20 MG TABLET PO SCH (10:54)
--- NOTE | 2017-12-29 15:40 | DS ---
Physical Examination Vital Signs: Vital Signs Temperature 98.2 F 12/29/17 10:00 Pulse Rate 93 H 12/29/17 10:00 Respiratory Rate 18 12/29/17 10:00 Blood Pressure 125/62 12/29/17 10:00 O2 Sat by Pulse Oximetry (%) 96 12/28/17 21:00 Labs: CBC, BMP 12/27/17 06:45 12/28/17 07:20 Discharge Summary Reason For Visit: ABDOMINAL PAIN, HYPONATREMIA Current Active Problems Abdominal pain (Acute) Diarrhea (Acute) Hyponatremia (Acute) Vomiting (Acute) - Instructions Referrals: Eric Leung MD [Primary Care Provider] - - Home Medications Comprehensive Discharge Medication List: Ambulatory Orders Metoprolol Succinate [Toprol Xl] 25 mg PO DAILY 06/14/15 Rivaroxaban [Xarelto -] 20 mg PO DAILY 06/14/15 Atorvastatin Ca [Lipitor] 10 mg PO HS 10/16/16
[2017-12-29 15:57] VITALS: BP 132/73; PULSE 89; TEMP 98.4
--- NOTE | 2017-12-29 18:42 | PN ---
Progress Note (short form) - Note Progress Note: covering dr pham 1. hyponatremia 2. gastroenteritis 3. a-fib 4. chol Last Vital Signs Temp Pulse Resp BP Pulse Ox 98.4 F 89 20 132/73 97 12/29/17 14:55 12/29/17 14:55 12/29/17 14:55 12/29/17 14:55 12/29/17 09:00 CBC, BMP 12/27/17 06:45 12/28/17 07:20 IMP- gi symptoms resolved hyponatremia 2/2 gi losses Plan agree with d/c plans
== END 2017-12-29 17:18 | disposition home or self-care (01) | DRG 422 ==
LOC: JER 19:37 → UNDOADMIN 12-27 01:57 → JERBED 12-27 01:57 → UNDOADMIN 12-27 02:01 → JERBED 12-27 07:34 → J5S 12-27 12:37
PROVIDERS: ADMIT Internal Medicine; ATTEND Internal Medicine
DX: E87.1 Hypo-osmolality and hyponatremia (principal); R11.0 Nausea; I10 Essential (primary) hypertension; E78.5 Hyperlipidemia, unspecified; K52.9 Noninfective gastroenteritis and colitis, unspecified; I48.91 Unspecified atrial fibrillation; N39.0 Urinary tract infection, site not specified; E86.1 Hypovolemia; E86.0 Dehydration; I25.10 Atherosclerotic heart disease of native coronary artery without angina pectoris
CPT/HCPCS: 36415; 71045-TC-FY; 74177-TC; 80048; 80053; 81003; 81015; 82436; 82550; 83690; 83735; 83930; 83935; 84100; 84133; 84300; 84443; 84484; 85025; 86480; 87899; 90670; 93005; 93010; 97116-GP; 97161-GP; 99285-25

== ENCOUNTER 2024-07-29 13:13 | Emergency (ER) | payer OTHER ==
[2024-07-29 13:32] VITALS: BP 139/73; PULSE 99; RESP 16; TEMP 98.4; BMI 23.6
[2024-07-29] MEDS ORDERED: AMOX TR/POT CLAV 875MG/125MG TABLETS (FP) ONE (14:34)
[2024-07-29] MEDS: AMOXICILLIN ORAL SUSPENSION - 125 MG/5 ML PO ONE (14:34)
[2024-07-29] MEDS: AMOX TR/POT CLAV 875MG/125MG TABLETS (FP) PO ONE (14:37)
== END 2024-07-29 15:32 | disposition home or self-care (01) ==
LOC: JER 13:13
DX: H66.91 Otitis media, unspecified, right ear (principal); J06.9 Acute upper respiratory infection, unspecified; B34.9 Viral infection, unspecified; R50.9 Fever, unspecified; R05.9 Cough, unspecified; R09.81 Nasal congestion; Z20.822 Contact with and (suspected) exposure to COVID-19
CPT/HCPCS: 0241U-QW; 71046-TC-FY; 99284-25